=== PATIENT | male | born 2000 | race Caucasian/White ===

== ENCOUNTER 2021-07-25 15:17 | Emergency (ER) | payer OTHER, SELFPAY ==
--- NOTE | ~2021-07-25 | XR_ITS ---
XR hand RT min 3V 07/25/2021 16:16 Indication: Right second finger pain after blunt trauma Procedure: 3 views right hand Comparison: No prior studies for comparison. Findings: There is a comminuted displaced intra-articular fracture distal aspect of the second middle phalanx. There is soft tissue swelling. No foreign bodies. Impression: 1: Comminuted, displaced intra-articular fracture right second middle phalanx. Reviewed, dictated and finalized at location A. Impression: 1: Comminuted, displaced intra-articular fracture right second middle phalanx.
[2021-07-25 16:00] VITALS: BP 153/92; PULSE 81; RESP 17; TEMP 36.6; O2SAT 97
[2021-07-25] MEDS: TETANUS,DIPHTHERIA,AC PERTUSSIS ADULT (0.5 ML) BOOSTRIX IM (19:51)
[2021-07-25] MEDS: traMADol HCL (*CRX) 50 MG TABLET PO (19:52)
[2021-07-25 20:03] VITALS: BP 176/98; PULSE 63; RESP 16; O2SAT 97
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
== END 2021-07-25 20:05 | disposition home or self-care (01) ==
PROVIDERS: Emergency Provider Emergency Medicine
DX: S62.620A Displaced fracture of middle phalanx of right index finger, initial encounter for closed fracture (principal); S61.210A Laceration without foreign body of right index finger without damage to nail, initial encounter; Z23 Encounter for immunization; W23.0XXA Caught, crushed, jammed, or pinched between moving objects, initial encounter
CPT/HCPCS: 12002; 29125; 29130; 73130; 90471; 90715; 99284; A9270

== ENCOUNTER 2022-03-24 17:00 | Emergency (ER) | payer SELFPAY ==
[2022-03-24] VITALS (9 sets, daily range): BP systolic 122–162; BP diastolic 65–107; PULSE 74–109; RESP 14–20; TEMP 36.4; O2SAT 94–100
--- NOTE | ~2022-03-24 | XR_ITS ---
EXAMINATION: XR chest 2V Exam Date/Time: 03/24/2022 19:15 CDT HISTORY: unresponsive, polysubstance abuse Comparison: None available. RESULT: Lines, tubes, and devices: None. Lungs and pleura: Low lung volumes, particularly in the lateral view, grossly clear. Cardiomediastinal silhouette: Normal cardiomediastinal silhouette. Other: No acute osseous or upper abdominal finding. IMPRESSION: No acute cardiopulmonary process. Reviewed, dictated and finalized at location K.
--- NOTE | 2022-03-24 17:03 | ECG_ITS ---
Measurements Intervals [place] Rate: 100 P: 43 DE: 131 QRS: 54 QRSD: 101 T: 15 QT: 333 QTc: 430 Interpretive Statements SINUS TACHYCARDIA MINIMAL Q WAVES- INF/LAT LEADS BASELINE ARTIFACT- I, II, III, AVR, AVL, AVF, V1-V2 BORDERLINE ECG Electronically Signed On 03-24-2022 17:25:34 CDT by Fredis Tian D.O.
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
[2022-03-24] MEDS: SODIUM CHLORIDE 0.9% IV 1,000 ML 999 ML IV CONT (17:20)
[2022-03-24 17:28] LABS: Appearance Urine Clear (Clear); Bilirubin Urine Negative (Negative); Blood Urine Negative (Negative); Color Urine Yellow (Yellow); Glucose Urine UA 1+ mg/dL (Negative); Ketones Urine Negative (Negative); Leukocyte Esterase Ur Negative LEU/UL (Negative); Nitrate Urine Negative (Negative); Protein Urine 1+ mg/dL (Negative); Specific Grav Ur >= 1.030 (1.001-1.035); Urobilinogen Urine 0.2 mg/dL (<2.0); pH Urine 5.5 (5.0-9.0)
[2022-03-24 17:36] LABS: Add Urine Microscopic? YES; Bacteria Urine Trace /hpf; Mucus Urine Heavy /lpf
[2022-03-24 17:39] LABS: Basophils Absolute Auto 0.1 K/mm3 (0.0-0.1); Basophils Percent Auto 0.3 % (0.2-1.2); Eosinophils Absolute Auto 0.3 K/mm3 (0-0.3); Eosinophils Percent Auto 1.4 % (0-4.4); Hematocrit 42.6 % (42.0-52.0); Hemoglobin 13.6 g/dL (14.0-18.0); Immature Granulocyte Absolute 0.08 K/mm3 (0.00-0.031); Immature Granulocyte Percent A 0.4 % (0-0.5); Lymphocytes Absolute Auto 1.91 K/mm3 (0.9-3.2); Lymphocytes Percent Auto 10.6 % (18.3-44.2); Mean Corpuscular HGB Conc 31.9 g/dl (32-36); Mean Corpuscular Hemoglobin 29.2 pg (26-34); Mean Corpuscular Volume 91.6 fl (80-100); Mean Platelet Volume 8.7 fl (7.4-10.4); Monocytes Absolute Auto 1.3 K/mm3 (0.1-0.6); Monocytes Percent Auto 7.1 % (2.6-8.5); Neutrophils Absolute Auto 14.4 K/mm3 (1.3-6.7); Neutrophils Percent Auto 80.2 % (45.5-73.1); Platelet Count Result 300 k/mm3 (150-375); Red Blood Count 4.65 M/mm3 (4.6-6.20); Red Cell Distribution Width 13.6 % (11.5-14.5)
[2022-03-24 17:48] LABS: Alanine Aminotransferase 31 U/L (6-50); Albumin Level 4.3 g/dL (3.5-5.1); Alkaline Phosphatase 56 U/L (38-126); Anion Gap 5 mmol/L (8-16); Aspartate Amino Transferase 34 U/L (17-59); Bilirubin,Total 0.3 mg/dL (0.2-1.3); Blood Urea Nitrogen 17 mg/dL (9-20); Calcium 8.7 mg/dL (8.4-10.2); Carbon Dioxide 30 mmol/L (22-30); Chloride 110 mmol/L (98-107); Estimated Glomerular Filt Rate > 60; Ethanol < 10 mg/dL (<10); Glucose 145 mg/dL (65-110); Potassium 4.5 mmol/L (3.4-5.0); Sodium 145 mmol/L (137-145)
[2022-03-24 17:49] LABS: Acetaminophen < 10 ug/mL (10-30); INR 1.1; Prothrombin Time 13.5 Seconds (11.1-14.7); Salicylate < 1.0 mg/dL (2-20)
[2022-03-24 17:50] LABS: Partial Thromboplastin Time 26.6 SECONDS (22.3-36.8)
[2022-03-24 18:08] LABS: Amphetamine Screen Urine Negative (Negative); Barbiturate Screen Urine Negative (Negative); Benzodiazepines Screen Urine Positive (Negative); Cannabinoid Screen Urine Positive (Negative); Cocaine Screen Urine Negative (Negative); Methadone Screen Urine Negative (Negative); Opiate Screen Urine Negative (Negative); Phencyclidine Screen Urine Negative (Negative)
--- NOTE | 2022-03-24 19:08 | PC.NURSE ---
Pt to xray.
--- NOTE | 2022-03-24 19:20 | PC.NURSE ---
Assuming care of pt.
== END 2022-03-24 20:57 | disposition home or self-care (01) ==
PROVIDERS: Emergency Provider Nurse Practitioner Family
DX: T50.911A Poisoning by multiple unspecified drugs, medicaments and biological substances, accidental (unintentional), initial encounter (principal); R00.0 Tachycardia, unspecified
CPT/HCPCS: 36415; 71046; 80053; 80307; 81001; 85025; 85610; 85730; 87086; 93005; 96360; 99284; J7030